=== PATIENT | female | born 1970 | race Asian ===

== ENCOUNTER 2025-06-06 22:54 | Inpatient (IN) | payer OTHER ==
[~2025-06-06] VITALS: Ht 149.9 cm; Wt 44.5 kg
[2025-06-06] MEDS ORDERED: ONDANSETRON HCL/PF 4 MG/2 ML VIAL ONE (23:41)
[2025-06-06] MEDS ORDERED: PANTOPRAZOLE 40 MG VIAL ONE (23:41)
[2025-06-06] MEDS ORDERED: KETOROLAC TROMETHAMINE 15 MG/ML VIAL ONE (23:41)
[2025-06-06 23:42] LABS: APPEARANCE,URINE TURBID (CLEAR); BLOOD, URINE NEGATIVE Ery/uL (NEGATIVE); LEUKOCYTE ESTERASE ,URINE TRACE (NEGATIVE); NITRITE, URINE NEGATIVE (NEGATIVE); UGLUCOSE NEGATIVE (NEGATIVE)
[2025-06-06 23:46] LABS: RED CELL DISTRIBUTION WIDTH 13.3 % (11.5-15.0)
[2025-06-06] MEDS: KETOROLAC TROMETHAMINE 15 MG/ML VIAL IV ONE (23:48)
[2025-06-06] MEDS: PANTOPRAZOLE 40 MG VIAL IV ONE (23:48)
[2025-06-06] MEDS: IV NS 0.9% 1,000 ML BAG IV ONE (23:48)
[2025-06-06] MEDS: ONDANSETRON HCL/PF 4 MG/2 ML VIAL IVP ONE (23:48)
[2025-06-06 23:49] LABS: CALCIUM, SERUM 9.5 mg/dL (8.5-10.1); CREATININE 0.7 mg/dL (0.6-1.3); PLATELET COUNT (AUTO) 240 K/uL (150-450); RED BLOOD CELL COUNT(AUTO) 4.60 MIL/uL (4.0-5.2); SODIUM SERUM 139.0 mmol/L (136-145); UREA NITROGEN, BLOOD 18.0 mg/dL (7-18); WHITE BLOOD COUNT (AUTO) 13.4 K/uL (4.3-11.0)
[2025-06-06 23:55] LABS: ASPARTATE AMINOTRANSFERASE 24.0 U/L (15-37); TOTAL PROTEIN, SERUM 8.0 g/dL (6.4-8.2)
[2025-06-06 23:56] LABS: ADD URINE CULTURE NO; SQUAMOUS EPITHELIAL CELL,UR 0-2 /HPF (None Seen)
[2025-06-06 23:57] LABS: URINE AMORPHOUS PHOSPHATES Many /HPF (None Seen)
[2025-06-07] MEDS ORDERED: ONDANSETRON HCL/PF 4 MG/2 ML VIAL ONE (00:34)
[2025-06-07] MEDS ORDERED: MORPHINE SULFATE INJ 4 MG/ML DISP.SYRIN ONE (00:35)
[2025-06-07] MEDS ORDERED: PIPERACI/TAZO 3.375GM/D5W 50ML PB IV ONE (00:35)
[2025-06-07 00:36] LABS: LACTIC ACID 3.0 mmol/L (0.4-2.0)
[2025-06-07] MEDS: IV NS 0.9% 1,000 ML BAG IV ONE (00:46)
[2025-06-07] MEDS: ONDANSETRON HCL/PF 4 MG/2 ML VIAL IVP ONE (00:46)
[2025-06-07] MEDS: MORPHINE SULFATE INJ 2 MG/ML DISP.SYRIN IV ONE (00:46)
[2025-06-07] MEDS: PIPERACILLIN /TAZOBACTAM 3.375 G in IV D5W 50 ML IV ONE (00:47)
[2025-06-07] MEDS ORDERED: MORPHINE SULFATE INJ 2 MG/ML DISP.SYRIN IV PRN (01:30)
[2025-06-07] MEDS ORDERED: ACETAMINOPHEN 325 MG TABLET PO PRN (01:30)
[2025-06-07] MEDS ORDERED: Z GUARD REMEDY 4 OZ OINT TP PRN (01:30)
[2025-06-07 02:21] VITALS: BP 102/74; TEMP 97.3; O2SAT 100
[2025-06-07] MEDS: IV D5/0.45 NACL 1,000 ML IV PRN (02:42)
[2025-06-07 03:00] VITALS: BP 102/74; TEMP 97.3; O2SAT 100
[2025-06-07] MEDS ORDERED: PIPERACILLIN /TAZOBACTAM 3.375 G in IV D5W 50 ML IV SCH (06:00)
[2025-06-07] MEDS: PANTOPRAZOLE 40 MG TABLET.DR PO SCH (07:30)
[2025-06-07] MEDS ORDERED: ATOR40TA PO (08:08)
[2025-06-07] MEDS ORDERED: FAMO-108 PO (08:08)
[2025-06-07 08:40] VITALS: BP 94/60; TEMP 98.4; O2SAT 98
[2025-06-07] MEDS: PIPERACILLIN /TAZOBACTAM 3.375 G in IV D5W 100 ML IV SCH (10:09)
[2025-06-07 16:51] VITALS: BP 99/69; TEMP 98.4; O2SAT 96
[2025-06-07 20:00] VITALS: BP 115/83; TEMP 98.1; O2SAT 99
[2025-06-08 06:51] LABS: PLATELET COUNT (AUTO) 227 K/uL (150-450); RED BLOOD CELL COUNT(AUTO) 4.28 MIL/uL (4.0-5.2); RED CELL DISTRIBUTION WIDTH 13.5 % (11.5-15.0); WHITE BLOOD COUNT (AUTO) 7.2 K/uL (4.3-11.0)
[2025-06-08 06:59] LABS: INR 0.98 (0.91-1.10)
[2025-06-08 07:00] LABS: ASPARTATE AMINOTRANSFERASE 29.0 U/L (15-37); CALCIUM, SERUM 8.5 mg/dL (8.5-10.1); CREATININE 0.8 mg/dL (0.6-1.3); PHOSPHORUS 3.7 mg/dL (2.5-4.9); SODIUM SERUM 142.0 mmol/L (136-145); TOTAL PROTEIN, SERUM 7.0 g/dL (6.4-8.2); UREA NITROGEN, BLOOD 11.0 mg/dL (7-18)
[2025-06-08 07:18] LABS: LDL 75.0 mg/dL (0-99)
[2025-06-08 08:00] VITALS: BP 98/56; TEMP 97.9; O2SAT 97
[2025-06-08 11:51] LABS: PREGNANCY TEST URINE QUAL NEGATIVE (NEGATIVE)
[2025-06-08] MEDS ORDERED: LABETALOL 20 MG/4 ML VIAL ONE (12:03)
[2025-06-08] MEDS ORDERED: SUGAMMADEX SODIUM 200 MG/2 ML VIAL IV ONE (12:03)
[2025-06-08] MEDS ORDERED: MIDAZOLAM HCL 2 MG/2ML VIAL ONE (12:03)
[2025-06-08] MEDS ORDERED: FENTANYL PF 100MCG/2ML AMPUL ONE ×2 (12:03→15:01)
[2025-06-08] MEDS ORDERED: ROCURONIUM BROMIDE 50 MG/5 ML ONE (12:04)
[2025-06-08] MEDS ORDERED: ANESTHESIA TRAY IN PYXIS 1 EA TRAY MC ONE (13:02)
[2025-06-08] MEDS ORDERED: LIDOCAINE HCL/MPF 1% 30 ML VIAL IJ ONE (13:29)
[2025-06-08] MEDS ORDERED: BUPIVACAINE 0.25% 75 MG/30 ML VIAL ONE (13:29)
[2025-06-08 15:56] VITALS: BP 130/82; TEMP 97.7; O2SAT 97
[2025-06-08] MEDS ORDERED: oxyCODONE IR immediate release 5 MG TABLET PO PRN ×2 (16:00)
[2025-06-08] MEDS ORDERED: HYDROMORPHONE 1 MG/1 ML DISP.SYRIN IV PRN (16:00)
[2025-06-08] MEDS: ACETAMINOPHEN ES 500 MG TABLET PO SCH (16:50)
[2025-06-08] MEDS: ONDANSETRON HCL/PF 4 MG/2 ML VIAL IVP PRN (17:54)
[2025-06-08 20:00] VITALS: BP 113/73; TEMP 98.1; O2SAT 97
[2025-06-08] MEDS: TRAZODONE 50 MG TABLET PO SCH (22:12)
[2025-06-09 07:00] VITALS: BP 94/62; TEMP 97.9; O2SAT 97
[2025-06-09] MEDS ORDERED: LEVO500T90 PO (07:59)
== END 2025-06-09 14:39 | disposition home or self-care (01) | DRG 418 ==
LOC: ER 23:00 → MED 06-07 02:03
PROVIDERS: ADMIT Internal Medicine; ATTEND Internal Medicine
PROC: 0FT44ZZ Resection of Gallbladder, Percutaneous Endoscopic Approach (ICD-10-PCS; principal; 2025-06-08 13:00)
DX: K80.11 Calculus of gallbladder with chronic cholecystitis with obstruction (principal); E87.20 Acidosis, unspecified; K21.9 Gastro-esophageal reflux disease without esophagitis; E78.5 Hyperlipidemia, unspecified; D72.829 Elevated white blood cell count, unspecified
CPT/HCPCS: 36415; 71045-TC; 76705-TC; 78226; 80048-TC; 80053-TC; 80061-TC; 80076-TC; 81001; 83605-TC; 83690-TC; 83735-TC; 84100-TC; 84443-TC; 84703-TC; 85025-TC; 85610-TC; 85730-TC; 86850-TC; 87040-TC; 87086-TC; A4223; A9537; G0378; J0330; J0690; J1100; J1885; J2250; J2270; J2405; J2470; J2543; J2704; J3010; J3490; J7030; J7050; J7060